=== PATIENT | female | born 1975 | race Caucasian/White ===

== ENCOUNTER 2017-09-12 16:19 | Inpatient (IN) | payer OTHER ==
[~2017-09-12] VITALS: Ht 167.6 cm; Wt 94.8 kg
[2017-09-12] MEDS ORDERED: LORA0.5T2 PO (16:51)
[2017-09-12] MEDS ORDERED: NIFE30TA5 PO (16:51)
[2017-09-12] MEDS ORDERED: METHY250 PO (16:51)
[2017-09-12] MEDS ORDERED: QUET25TA PO (16:51)
[2017-09-12] MEDS ORDERED: PNV11TAB PO (16:51)
[2017-09-12 17:01] VITALS: BP 133/80
[2017-09-12] MEDS: BETAMETHASONE SOLUSPAN 6 MG/ML 5 ML VIAL IM SCH (17:16)
[2017-09-12] MEDS: DEXTROSE 5%-LACTATED RINGERS 1,000 ML IV SCH ×3 (17:54→22:20)
[2017-09-12 18:26] LABS: BASOPHILS % (AUTO) 0.2 % (0.0-2.0); EOSINOPHILS % (AUTO) 0.5 % (1.0-6.0); HEMATOCRIT 39.1 % (36-46); HEMOGLOBIN 13.1 g/dL (12.0-16.0); LYMPHOCYTES # (AUTO) 1.4 K/uL (1.0-4.8); LYMPHOCYTES % (AUTO) 14.1 % (22.0-44.0); MEAN CORPUSCULAR HEMOGLOBIN 28.9 pg (26.0-34.0); MEAN CORPUSCULAR HGB CONC 33.5 G/dL (31.0-37.0); MEAN CORPUSCULAR VOLUME 86 fL (80-100); MONOCYTES # (AUTO) 0.5 K/uL (0.1-1.0); MONOCYTES % (AUTO) 5.3 % (2.0-9.0); NEUTROPHILS # (AUTO) 8.2 K/uL (1.8-7.7); NEUTROPHILS % (AUTO) 79.9 % (40.0-70.0); PLATELET COUNT (AUTO)-OB 300 K/uL (150-450); RED BLOOD CELL COUNT(AUTO) 4.53 MIL/uL (4.00-5.20); RED CELL DISTRIBUTION WIDTH 14.3 % (11.5-14.5)
[2017-09-12 18:30] LABS: ANION GAP 13 mmol/L (8-16); CALCIUM, TOTAL 8.6 mg/dL (8.8-10.5); CARBON DIOXIDE 23 mmol/L (22-29); CHLORIDE 105 mmol/L (98-107); CREATININE 0.58 mg/dL (0.60-1.30); GLOMERULAR FILTR. RATE CALC > 60 mL/min (>60); GLUCOSE,RANDOM 161 mg/dL (70-110); POTASSIUM 3.7 mmol/L (3.5-5.1); SODIUM SERUM 141 mmol/L (136-145); UREA NITROGEN, BLOOD 11 mg/dL (7-18)
[2017-09-12 18:36] LABS: ALANINE AMINOTRANSFERASE 16 U/L (12-78); ALBUMIN 2.5 g/dL (3.4-5.0); ALKALINE PHOSPHATASE 209 U/L (46-116); ASPARTATE AMINOTRANSFERASE 11 U/L (15-37); BILIRUBIN,TOTAL 0.2 mg/dL (0.1-1.0); TOTAL PROTEIN, SERUM 6.5 g/dL (6.4-8.2); URIC ACID 3.6 mg/dL (2.6-7.2)
[2017-09-12] MEDS ORDERED: METHYLDOPA 250 MG TABLET PO ONE (19:45)
[2017-09-12] MEDS ORDERED: LORazepam 0.5 MG TABLET PO ONE (19:45)
[2017-09-12] MEDS ORDERED: LORazepam 1 MG TABLET PO ONE (20:15)
[2017-09-13] MEDS: BETAMETHASONE SOLUSPAN 6 MG/ML 5 ML VIAL IM SCH (05:15)
[2017-09-13] MEDS ORDERED: RINGERS SOLUTION,LACTATED 1,000 ML IV ONE (05:32)
[2017-09-13] MEDS ORDERED: METOCLOPRAMIDE HCL 5 MG/ML 2 ML VIAL IVP ONE (05:45)
[2017-09-13] MEDS ORDERED: CITRIC ACID/SODIUM CITRATE 30 ML SOLUTION UDCUP PO ONE (05:45)
[2017-09-13] MEDS ORDERED: MORPHINE SULFATE/PF 0.5 MG/ML 10 ML AMP ONE (07:21)
[2017-09-13] MEDS ORDERED: FentaNYL CITRATE-PF 100 MCG/2 ML VIAL ONE (07:21)
[2017-09-13] MEDS ORDERED: CeFAZolin 2 GM/DEXTROSE 50 ML IV ONE (07:21)
[2017-09-13] MEDS ORDERED: NALOXONE HCL 0.4 MG/ML VIAL IVP PRN (09:00)
[2017-09-13] MEDS ORDERED: FentaNYL CITRATE-PF 100 MCG/2 ML VIAL IVP PRN ×4 (09:00)
[2017-09-13] MEDS ORDERED: NALBUPHINE HCL 10 MG/ML VIAL IVP PRN ×3 (09:00)
[2017-09-13] MEDS ORDERED: ONDANSETRON HCL 4 MG/2 ML VIAL IVP PRN ×2 (09:00)
[2017-09-13] MEDS ORDERED: MEPERIDINE-PF 25 MG/ML SYRINGE IVP PRN (09:00)
[2017-09-13] MEDS ORDERED: DiphenhydrAMINE HCL 50 MG/ML VIAL IVP PRN ×2 (09:00)
[2017-09-13] MEDS ORDERED: DEXAMETHASONE SOD PHOS 4 MG/ML VIAL IVP PRN (09:00)
[2017-09-13] MEDS ORDERED: PROMETHAZINE HCL 12.5 MG in SODIUM CHLORIDE 0.9% 50 ML IV PRN (09:00)
[2017-09-13] MEDS ORDERED: ACETAMINOPHEN/CODEINE 300-30 MG TABLET PO PRN ×2 (10:00)
[2017-09-13] MEDS ORDERED: LANOLIN 7 GM OINTMENT TP PRN (10:00)
[2017-09-13] MEDS: DEXTROSE 5%-0.45% SODIUM CHL 1,000 ML IV SCH ×3 (11:13→20:09)
[2017-09-13] MEDS ORDERED: NALBUPHINE HCL 10 MG/ML VIAL IVP ONE (11:15)
[2017-09-13] MEDS: LORazepam 2 MG/ML VIAL IVP PRN ×2 (14:14→23:38)
[2017-09-13] MEDS: KETOROLAC TROMETHAMINE 30 MG/ML VIAL IVP SCH ×2 (15:54→22:11)
[2017-09-13] MEDS ORDERED: PNEUMOCOCCAL VACCINE POLYVALENT 0.5 ML VIAL [PPSV23] IM ONE (18:30)
[2017-09-13] MEDS ORDERED: OXYGEN THERAPY IH SCH ×4 (20:00)
[2017-09-13] MEDS: MAGNESIUM HYDROXIDE SUSPENSION 30 ML UDCUP PO SCH (21:00)
[2017-09-13] MEDS: QUEtiapine FUMARATE 25 MG TABLET PO PRN (23:36)
[2017-09-14] MEDS: DEXTROSE 5%-0.45% SODIUM CHL 1,000 ML IV SCH (00:31)
[2017-09-14] MEDS: IBUPROFEN 800 MG TABLET PO SCH ×4 (04:19→21:30)
[2017-09-14] MEDS ORDERED: KETOROLAC TROMETHAMINE 60 MG/2 ML VIAL IM ONE (06:02)
[2017-09-14] MEDS ORDERED: ONDANSETRON HCL 4 MG/2 ML VIAL IVP ONE (06:02)
[2017-09-14] MEDS ORDERED: EPHEDrine SULFATE 50 MG/ML VIAL IM ONE (06:02)
[2017-09-14] MEDS ORDERED: OXYTOCIN 10 UNITS/ML VIAL IM ONE (06:02)
[2017-09-14] MEDS ORDERED: LORazepam 0.5 MG TABLET PO PRN (08:45)
[2017-09-14] MEDS: MAGNESIUM HYDROXIDE SUSPENSION 30 ML UDCUP PO SCH ×2 (08:59→21:30)
[2017-09-14] MEDS: LORazepam 1 MG TABLET PO PRN (13:39)
[2017-09-14] MEDS ORDERED: LORazepam 1 MG TABLET PO SCH (21:00)
[2017-09-14] MEDS: QUEtiapine FUMARATE 25 MG TABLET PO PRN (23:15)
[2017-09-15] MEDS ORDERED: MIDAZOLAM HCL 2 MG/2 ML VIAL IVP ONE (01:35)
[2017-09-15] MEDS: IBUPROFEN 800 MG TABLET PO SCH ×2 (03:28→08:13)
[2017-09-15] MEDS: LORazepam 1 MG TABLET PO PRN (08:13)
[2017-09-15] MEDS: MAGNESIUM HYDROXIDE SUSPENSION 30 ML UDCUP PO SCH (08:13)
[2017-09-15] MEDS ORDERED: SENNA/DOCUSATE SODIUM 187-50 MG TABLET PO ONE (09:30)
[2017-09-15] MEDS ORDERED: IBUP-2071 PO (09:35)
[2017-09-15] MEDS ORDERED: PNV11TAB PO (09:36)
== END 2017-09-15 10:35 | disposition home or self-care (01) | DRG 765 ==
LOC: 4S 16:19 → OBSVTOIN 16:19 → 4S 09-13 08:35
PROVIDERS: ADMIT Obstetrics & Gynecology; ATTEND Obstetrics & Gynecology
PROC: 10D00Z1 Extraction of Products of Conception, Low, Open Approach (ICD-10-PCS; principal; 2017-09-13)
PROC: 0UB70ZZ Excision of Bilateral Fallopian Tubes, Open Approach (ICD-10-PCS; 2017-09-13)
DX: O34.211 Maternal care for low transverse scar from previous cesarean delivery (principal); O36.5930 Maternal care for other known or suspected poor fetal growth, third trimester, not applicable or unspecified; O16.4 Unspecified maternal hypertension, complicating childbirth; O76 Abnormality in fetal heart rate and rhythm complicating labor and delivery; O99.344 Other mental disorders complicating childbirth; Z3A.35 35 weeks gestation of pregnancy; Z37.0 Single live birth; Z30.2 Encounter for sterilization; Z79.899 Other long term (current) drug therapy
CPT/HCPCS: 84550; 86850; 86900; 86901; 87081; 88302; J0690; J0702; J1885; J2060; J2250; J2274; J2300; J2405; J2590; J2765; J3010; J3490; J7120